=== PATIENT | female | born 1985 | race Caucasian/White ===

== ENCOUNTER 2016-11-09 08:45 | Outpatient (RCR) | payer OTHER ==
--- NOTE | 2016-10-30 14:48 | PT/OT/ST INITIAL EVALUATION ---
[facility], [facility]. PHYSICAL/OCCUPATIONAL THERAPY [address] [place] [id number] PLAN OF CARE/ASSESSMENT FOR OUTPATIENT REHABILITATION (Complete for Initial Claims Only) 1. PATIENT'S NAME Dhara Quintana 2. ACC. No [id number] 3. PRIMARY DX Upper back pain 4. SECONDARY DX Thoracic and cervical spine spasming 5. ONSET DATE Approximately 3 months ago 6. REFERRAL DATE 7. SOC. DATE/TIME 10/22/2016 10:44 8. PRIOR LEVEL OF FUNCTION; PERTINENT HISTORY (Prior therapy results, reason for referral.) S: Prior to therapy, the patient did consent to today's evaluation and treatment. The patient is a 31-year-old female referred to physical therapy by MIRZA James to address upper back pain. The patient does rate her overall and general health as good. 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 The patient does have cumulative trauma from this work involving this right shoulder, forearm, fingertips and her upper back area. The patient has been receiving OT services and has improved over time, but she does continue to have pain and being limited in activity tolerance. The patient has been off work since August 31. The patient states she had no issues with pain in her shoulders, arm or upper back area prior to onset in August. The patient additionally states that she has been having headaches daily and that seemed to start at the base of her skull and radiate over the top of her head. The patient is right handed. Prior function: Includes the patient being able to perform all job duties without limitation. Current function: Currently the patient is unable to lift, work or perform her normal activities around the house and is in constant pain causing decrease in all function. Therapy History: Does include occupational therapy, which has improved her condition, but she does continue to have issues especially in her mid-back. No obstacles to delivery of care are observed. Maximal pain level 8/10. The patient describes the pain as a constant "hurt." Aggravating factors include any activity. Relieving factors include OT, heat, and medications, which ease the pain, but does not eliminate the pain. Diagnostic tests: The patient reports no diagnostic tests at this time. Past medical history: Does include cervical, uterine and ovarian cancer. Medication list: Include naproxen and flexibility. The patient's goal for physical therapy is to get better and get back to work. 9. INITIAL ASSESSMENT/SAFETY PRECAUTIONS/MEDICAL COMPLICATIONS (Level of function at start of care. Be specific, use objective measures, list problems.) O: APPEARANCE AND OBSERVATION: The patient presents as a middle aged female in apparently healthy condition. She does present to physical therapy with rounded shoulders and a forward head. She additionally holds her shoulders in a slightly elevated position. PALPATION: With palpation the patient does have increased tone and tightness throughout the upper trap and levator bilaterally, as well as having point tenderness and recreation of headache symptoms with pressure at the suboccipital triangle, as well as rhomboid tightness, which is the area that she indicates she has most of her pain at. SPECIAL TESTS: Include a positive traction test, which did relieve symptoms marginally. The patient, additionally at C4, 5 and 6, had approximately 50% decrease in cervical spine segmental mobility in a PA motion. The patient additionally had a left elevated 1st rib and a rotation present at T5 to the left. RANGE OF MOTION/FLEXIBILITY: Active range of motion and shoulder flexion on the right 150 degrees, on the left 160 degrees. Shoulder extension on the right 36 degrees, on the left 60 degrees. Shoulder abduction 98 degrees with pain on the right, 165 degrees on the left. Internal rotation is T11 on the right, T6 on the left and external rotation is T4 on the right, T5 on the left. Both internal rotation and external rotation were measured via the Apley method. Range of motion throughout the cervical spine, forward flexion 13 degrees with pain, extension 56 degrees, right side bend 37 degrees, left side bend 28 degrees, right rotation 68 degrees, and left rotation 60 degrees. STRENGTH: Throughout the left upper extremity is grossly 4+/5 throughout and throughout the right upper extremity grossly 4/5 with the exception of shoulder external rotation, which is 3+/5, shoulder abduction which is 3+/5 and shoulder flexion, which is 4-/5. TODAY'S TREATMENT: Following the initial evaluation manual therapy techniques were performed throughout the thoracic spine including ASTYM treatment and grade 3 to 4 joint mobilizations. 10. INITIAL POC: (Specify procedures, modalities, short and rat exterminator goals) A: The patient presents at physical therapy with diagnosis of upper back pain with resultant decreased posture, increased pain, decreased activity tolerance, increased muscle tone and decreased postural strength. PROGNOSIS: This patient has a good prognosis with regular therapy attendance and compliance with home exercise program. This patient is expected to benefit from physical therapy services in order to have decreased pain, increased posture, to return to job activities. OUTCOME ASSESSMENT: Neck disability index, which did score 48% disability. GOALS: 1. The patient with a 50% decrease in maximum mid back pain in 2 weeks to allow regular household work. 2. The patient with left cervical spine rotation and side bend to increase at least 5 degrees in 4 weeks to allow safe driving. 3. The patient with a neck disability index no more than 20% disability in 6 weeks to allow return to employment. The diagnosis, prognosis, treatment plan, risks and expected outcome were discussed with the patient and the patient did agree to today's established plan of care. P: Plan to treat the patient 2 times per week for 6 weeks in order to address upper back pain. Therapeutic treatments to include modalities to decrease pain, inflammation and spasming. Manual therapy techniques as indicated. Therapeutic exercise targeting postural and cervical spine stabilization activities, and patient education and home exercise program to be advanced as warranted. 11. PHYSICIAN SIGNATURE ? ON FILE OR ENTER HERE: 12. DATE: I certify the need for these services furnished under this plan of care and if for partial hospitalization. 13. CERTIFICATION FROM THROUGH
== END 2016-11-22 09:04 | disposition home or self-care (01) ==
LOC: PT 08:45
PROVIDERS: ATTEND Nurse Practitioner Family
DX: M25.521 Pain in right elbow (principal); M54.89 Other dorsalgia; M62.830 Muscle spasm of back

== ENCOUNTER 2016-11-13 09:00 | Outpatient (RCR) | payer OTHER | END 2016-12-03 | disposition home or self-care (01) | LOC: OT 09:00 | PROVIDERS: ATTEND Internal Medicine | DX: M25.522 Pain in left elbow (principal); M25.521 Pain in right elbow; M79.642 Pain in left hand; M79.641 Pain in right hand; M25.532 Pain in left wrist; M25.531 Pain in right wrist; R27.8 Other lack of coordination | CPT/HCPCS: 97014 ==

== ENCOUNTER 2017-02-28 14:30 | Outpatient (RCR) | payer OTHER ==
--- NOTE | 2016-12-28 13:17 | PT/OT/ST INITIAL EVALUATION ---
[facility], [facility]. PHYSICAL/OCCUPATIONAL THERAPY [address] [place] [id number] PLAN OF CARE/ASSESSMENT FOR OUTPATIENT REHABILITATION (Complete for Initial Claims Only) 1. PATIENT'S NAME Dhara Quintana 2. ACC # [id number] 3. HICN 4. PRIMARY DX M25.531-pain in right wrist M25.532-pain in left wrist M79.632-pain in left forearm 5. SECONDARY DX 6. TREATMENT DX Weakness 7. ONSET DATE November 2015 8. REFERRAL DATE 11/27/2016 9. SOC. DATE 12/25/2016 10. TIME OF EVAL 8:59 a.m. to 10:01 a.m. 11. TOTAL TIME/UNITS 30 [id number] OT Low Complexity. ultrasound 11/22 therapeutic exercise 11/20 manual therapy 12. G. CODES Not applicable 13. PRIOR LEVEL OF FUNCTION; PERTINENT HISTORY (Prior therapy results, reason for referral.) S: Reason for referral: The patient is a 31-year-old female referred by Dr. Taisha Bowling to address occupational therapy concerns secondary to diagnosis of pain in left wrist and forearm and pain in right wrist. Description/mechanism of injury: The patient previously completed occupational therapy services for condition beginning in August 2016. Following therapy, pt returned to work on November 15, 2016. The patient states she worked 2 to 3 weeks and then started noticing more tingling in bilateral hands and increased pain in forearms and along bilateral shoulder blades. 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 Pain level and location: 8/10 pain in left forearm of wrist. Pt reports pain as a constant pain. Noted- pt had lidocaine and dexamethasone shot completed in right carpal tunnel area, resulting in numbness on the RUE. Aggravating factors: Repetitive movements of the wrist. Relieving factors: None. Diagnostic tests: X-ray completed and nerve conduction test completed. The patient met with an orthopedic surgeon and with surgeon believing pt's condition to be bilateral carpal tunnel syndrome. The patient wished to conservative management before exploring other options. Prior to evaluation, pt had a lidocaine and dexamethasone injection in right carpal tunnel area, resulting numbness along RUE. Personal Health Rating: Good PMH (PT, OT, Hospitalizations) Depression and cancer. Pt previously completed physical therapy and occupational therapy services. Medications: Advil/Ibuprofen, Naproxen, Flexeril. Pt reports taking Naproxen and Gavi Back and Body frequently following work. No medication to complicate therapy. Patient's goal: The patient's goal is to get better and be pain free during daily activities and work tasks. 14. INITIAL ASSESSMENT/SAFETY PRECAUTIONS/MEDICAL COMPLICATIONS (Level of function at start of care. Be specific, use objective measures, list problems.) O: APPEARANCE/OBSERVATION: The patient appeared to her initial occupational therapy evaluation this date. The patient was observed to demonstrate within functional limits of shoulder, elbow and wrist pain. Noted increased pain at end ranges of wrist flexion and extension of bilateral hands. Noted- unable to accurately assess RUE including strength and special testing secondary to pt reporting numbness as a result of lidocaine and dexamethasone injection to right carpal tunnel area. 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 During testing, the patient had severe pain in dorsal forearm during left warp tying machine knotter strength testing. QuickDASH: The QuickDASH was completed this date which is standardized assessment with a score of 36.36. A score of 0 indicates no difficulties or limitations with daily activities or leisure tasks. The patient reports her maximum pain in the past 24 hours as 8/10. OTHER ASSESSMENTS: Tinel's completed on left carpal tunnel with report of sudden increase in pain along carpal tunnel area, indicating positive results. Phalen's test completed with report of increased pain and tingling/numbness in bilateral hands, indicating positive results. Martines's test completed with report of increased pain and numbness in left hand. Long Finger Test completed on left hand with report of severe pain located in dorsal forearm during testing. PALPATION: Severe tenderness to palpation along dorsal forearm to bilateral arms. SENSATION: Pt reports tingling/numbness in bilateral digits. Additionally reports burning sensation along ulnar side of forearm during movement of elbow extension and wrist flexion. COMPLEXITY LEVEL: The patient presents with decreased strength and decreased ability to handle, manipulate, and carry everyday items secondary to increased pain levels. Pt required no modification of assessment during evaluation, placing pt at a low complexity level. CONTRAINDICATIONS, PRECAUTIONS AND OBSTACLES TO DELIVERY OF CARE: None. INFORMED CONSENT: The OT discussed the OT diagnosis, prognosis, treatment plan, risks and expected outcomes with the patient. The patient agreed to the OT plan of care this date. TODAY'S TREATMENT: Included education about occupational therapy and the occupational therapy process. Additionally provided education on activity modification strategies and avoiding repetitive movements and repetitive gripping to reduce the tingling/numbness and pain. Completed ultrasound 1.0 mHz, 1.0 wcm2, pulsed for 8 minute each on bilateral carpal tunnel areas to reduce pain. Completed STM with use of a tool to reduce adhesions along carpal tunnel of bilateral wrists. Additionally provided education on median nerve glides and completed median nerve glides and tendon glides. Provided education on bed positioning to reduce pain symptoms at nighttime. 15. INITIAL POC: (Specify procedures, modalities, short and termite technician goals) A: OT DIAGNOSIS: The patient presents to occupational therapy with decreased strength, decreased coordination and increased pain levels in dorsal forearms and during end ranges of wrist movements. The patient would benefit from skilled occupational therapy services for design and administration of therapeutic activities and exercise to improve performance with daily activities and work tasks for return to prior level of function. PROBLEMS/IMPAIRMENT/FUNCTIONAL LOSS: Include decreased strength, tingling/numbness symptoms and increased pain levels, which impact the patient's ability to complete all daily activities and works independently. INTENDED OUTCOMES: Include reduce pain levels and improve performance of bilateral hands during daily activities and work task. Additionally to provide education on activity modifications to reduce symptoms. REHAB POTENTIAL/PROGNOSIS: Good based on patient's ability to follow through with therapist's recommendation and complete home exercise program. PLAN: Plan to treat the patient 1 time a week for initial evaluation followed by 2 times a week for 3 weeks for a total of 7 visits in order to address pain in bilateral wrists. The treatment is to include modalities, manual therapy, soft tissue mobilization, therapeutic exercise, active range of motion, passive range of motion, therapeutic activities, ADLs/self-care, patient education/home exercise program and other treatments as indicated. SHORT TERM GOALS: 1. The patient will verbalize and demonstrate compliance with home exercise program. 2. The patient will demonstrate ability to manipulate 8 out of 10 everyday items/containers with bilateral hands and report a 2/10 pain or less to improve independence with tasks. [facility] GOALS: 1. The patient to report a decrease in QuickDASH score of 15 to 20 points to indicate meaningful change and increased independence with daily activities and work tasks. 2. The patient will demonstrate ability to independently apply activity modification techniques during daily activities and work tasks to reduce symptoms with report of carryover of techniques at home and work. 16. PHYSICIAN SIGNATURE ? ON FILE OR ENTER HERE: 17. DATE: I certify the need for these services furnished under this plan of care and if for partial hospitalization. 18. CERTIFICATION FROM THROUGH
--- NOTE | 2017-01-04 10:33 | PT/OT/ST INITIAL EVALUATION ---
[facility], [facility]. PHYSICAL/OCCUPATIONAL THERAPY [address] [place] [id number] PLAN OF CARE/ASSESSMENT FOR OUTPATIENT REHABILITATION (Complete for Initial Claims Only) 1. PATIENT'S NAME Dhara Quintana 2. ACC. No [id number] 3. PRIMARY DX Bilateral shoulder and neck pain 4. SECONDARY DX 5. ONSET DATE November 2015 6. REFERRAL DATE 7. SOC. DATE/TIME 12/25/2016 10:00 a.m. 8. PRIOR LEVEL OF FUNCTION; PERTINENT HISTORY (Prior therapy results, reason for referral.) S: Prior to therapy, the patient did consent to today's evaluation and treatment. The patient is a 31-year-old female referred to physical therapy by Dr. Taisha Bowling to address bilateral shoulder and neck pain. The patient does rate her overall and general health as good. The patient states that she began experiencing pain throughout her neck, shoulders and upper extremities in November 2015. It has gradually worsened over time to the point where she was okay to receive services in occupational therapy starting August 2016. The patient underwent several months of therapy with occupational therapy and 6 visits of therapy with PT and had good results. The patient then returned to work on November 15 and after 2 to 3 weeks of work, with medications, had significant return of pain. The patient has been approved to come back to receive services to see if this condition can be controlled. The patient did see Dr. Madrid regarding this condition, who thinks it is a possibly she might have carpal tunnel that is causing her symptoms and would like to perform carpal tunnel releases, however, this has not been approved at this time. As the patient has had nerve conduction studies which were normal. The patient states she was injected in the right wrist with lidocaine and dexamethasone to see if this would help her condition. 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 Prior function: Includes the patient working out, being active with her children and being unlimited at work. Current function: Currently the patient is having significant increased pain with work activities, and on days when she doesn't work, has to rest in order to be able to tolerate work. She is additionally having difficulty sleeping. The patient has had PT in the past with dry needling with good results. Obstacles to delivery of care include chronic pain issues. Maximal pain level is reported as 10/10. Days without work it is 7/10. The patient describes the pain on the left as pain into the front upper shoulder. On the right pain is in the back of the shoulder and in the upper arm. Diagnostic tests: Once again include a nerve conduction study, which was negative for carpal tunnel. Relieving factors: Include Flexeril and naproxen which helps slightly and heat. Past medical history: Includes cervical cancer 2005, depression. Medication list: As previously mentioned. The patient's goal for physical therapy is to be pain free and back to full job duties without limitations. 9. INITIAL ASSESSMENT/SAFETY PRECAUTIONS/MEDICAL COMPLICATIONS (Level of function at start of care. Be specific, use objective measures, list problems.) O: APPEARANCE AND OBSERVATION: The patient presents as a middle aged female who presents to physical therapy with rounded shoulders and a forward head. The patient does present with low tone in a sacral sitting position as well. PALPATION: With palpation the patient does have an elevated left 1st rib and is generally tender to palpation throughout her cervical spine and shoulder areas. SPECIAL TESTS: Cervical spine mobility is within normal limits and did not reproduce symptoms. Thoracic spine mobility is approximately 25% limited from T1 to T7 with a rotation present at T4. RANGE OF MOTION/FLEXIBILITY: Throughout the cervical spine is within normal limits and grossly equal bilaterally. Upper extremity strength is within functional limits with no gross limitations with the exception of shoulder abduction, which is 136 degrees on the left and 146 degrees on the right. STRENGTH: Strength throughout the left upper extremity is 4/5. Elbow extension is 3/5, abduction 4-/5, shoulder extension 3/5. All other motions throughout the right upper extremity are grossly 4-/5. Postural strength is grossly 3/5 bilaterally. TODAY'S TREATMENT: Following the initial evaluation manual therapy techniques were performed and therapeutic exercise was performed and issued as a home exercise program. 10. INITIAL POC: (Specify procedures, modalities, short and senior living goals) A: The patient presents at physical therapy with diagnosis of bilateral shoulder and neck pain with resultant decreased active range of motion, decreased right shoulder strength and postural strength, increased pain, decreased thoracic spine mobility and decreased posture. PROGNOSIS: This patient has a good prognosis with regular therapy attendance and compliance with home exercise program. This patient is expected to benefit from physical therapy services in order to have decreased pain, increased strength to return to job duties. OUTCOME ASSESSMENT: Neck Disability Index which scored 46% disability. GOALS: 1. The patient to be independent and compliant with home exercise program in 1 week. 2. The patient with 50% decrease in maximum pain level in 4 weeks to allow sleeping at night. 3. The patient with right upper extremity and postural strength at least 4/5 throughout to allow performance of repetitive lifting without significant increased pain in 5 weeks. 4. The patient with a Neck Disability Index no more than 25% disability in 6 weeks to allow full job duty performance without increased pain. INFORMED CONSENT: The diagnosis, prognosis, treatment plan, risks and expected outcome were discussed with the patient and the patient did agree to today's established plan of care. P: Plan to treat the patient 2 times per week for 6 weeks in order to address bilateral shoulder and neck pain. Therapeutic treatments to include modalities to decrease pain, inflammation and spasming. Manual therapy techniques as indicated. Therapeutic exercise targeting active range of motion and strengthening, as well as postural stabilization activities, and patient education and home exercise program to be advanced as warranted. 11. PHYSICIAN SIGNATURE ? ON FILE OR ENTER HERE: 12. DATE: I certify the need for these services furnished under this plan of care and if for partial hospitalization. 13. CERTIFICATION FROM THROUGH
== END 2017-03-25 | disposition home or self-care (01) ==
LOC: PT 14:30
PROVIDERS: ATTEND Internal Medicine
DX: M25.521 Pain in right elbow (principal); M25.522 Pain in left elbow; M25.531 Pain in right wrist; M25.532 Pain in left wrist; S16.1XXD Strain of muscle, fascia and tendon at neck level, subsequent encounter; S46.811D Strain of other muscles, fascia and tendons at shoulder and upper arm level, right arm, subsequent encounter; M79.632 Pain in left forearm